=== PATIENT | female | born 2000 | race Hispanic/Latino ===

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

== ENCOUNTER 2019-06-30 11:42 | Emergency (ER) | payer OTHER ==
[2019-06-30] MEDS ORDERED: OCTYL 2-CYANOACRYLATE 1 EACH TP ONE (12:25)
[2019-06-30] MEDS ORDERED: TETANUS/DIPHTHERIA TOXOID [ADULT] 0.5 ML VIAL IM ONE (12:25)
== END 2019-06-30 12:50 | disposition home or self-care (01) ==
LOC: EDH 11:42
DX: S61.012A Laceration without foreign body of left thumb without damage to nail, initial encounter (principal); Z88.1 Allergy status to other antibiotic agents; Z72.0 Tobacco use; W26.0XXA Contact with knife, initial encounter; Y93.G3 Activity, cooking and baking; Y92.89 Other specified places as the place of occurrence of the external cause; Y99.8 Other external cause status
CPT/HCPCS: 12001; 73140; 90471; 90714

== ENCOUNTER 2021-09-19 14:49 | Emergency (ER) | payer SELFPAY ==
[~2021-09-19] VITALS: Ht 152.4 cm; Wt 47.6 kg
[2021-09-19 14:50] VITALS: BP 106/70
[2021-09-19 15:18] LABS: BASOPHILS % (AUTO) 0.6 % (0.0-5.0); EOSINOPHILS % (AUTO) 0.9 % (0.0-8.0); HEMATOCRIT 35.8 % (36-48); LYMPHOCYTES % (AUTO) 17.9 % (21.0-51.0); MEAN CORPUSCULAR HEMOGLOBIN 20.9 pg (27.0-33.0); MEAN CORPUSCULAR HGB CONC 29.6 g/dL (32.0-36.0); MEAN CORPUSCULAR VOLUME 70.5 fL (79-99); MONOCYTES % (AUTO) 5.7 % (3.0-13.0); NEUTROPHILS % (AUTO) 74.7 % (40.0-77.0); PLATELET COUNT (AUTO) 426 K/uL (130-400); RED BLOOD CELL COUNT(AUTO) 5.08 MIL/uL (4.00-5.50); RED CELL DISTRIBUTION WIDTH 15.9 % (11.0-15.5); WHITE BLOOD COUNT (AUTO) 10.1 K/uL (4.8-10.8)
[2021-09-19 15:19] LABS: APPEARANCE,URINE Clear (CLEAR); BILIRUBIN,URINE Negative (NEGATIVE); COLOR,URINE Yellow (YELLOW); GLUCOSE, URINE (UA) Negative (NEGATIVE); KETONES,URINE >=80 mg/dL (NEGATIVE); LEUKOCYTE ESTERASE ,URINE Moderate (NEGATIVE); NITRATE,URINE Negative (NEGATIVE); OCCULT BLOOD,URINE Moderate (NEGATIVE); PROTEIN,URINE POS 2+ mg/dL (NEGATIVE)
[2021-09-19 15:26] LABS: HCG,QUAL RESULT NEGATIVE (NEGATIVE)
[2021-09-19 15:29] LABS: CREATININE 0.5 mg/dL (0.5-1.5); POTASSIUM 4.3 mmol/L (3.5-5.1)
[2021-09-19 15:34] LABS: ALBUMIN 4.8 g/dL (3.5-5.0); BILIRUBIN,TOTAL 0.5 mg/dL (0.2-1.0); TOTAL PROTEIN, SERUM 8.8 g/dL (6.0-8.3)
[2021-09-19 15:40] LABS: BACTERIA,URINE Few /HPF (None Seen); SQUAMOUS EPITHELIAL CELL,UR Few /HPF (0-2)
[2021-09-19 15:41] LABS: WBC,URINE 26-50 /HPF (0-1)
[2021-09-19 15:42] LABS: MUCUS,URINE Rare LPF (None Seen)
[2021-09-19] MEDS ORDERED: LIDOCAINE HCL-MPF 1% 2ML VIAL ONE (17:24)
[2021-09-19] MEDS ORDERED: CEPH500B PO (17:28)
[2021-09-19] MEDS ORDERED: PHEN-847 PO (17:28)
[2021-09-19] MEDS ORDERED: PHENAZOPYRIDINE HCL 200 MG TABLET PO ONE (17:30)
[2021-09-19] MEDS ORDERED: CEFTRIAXONE 1G VIAL IM ONE (17:30)
== END 2021-09-19 17:47 | disposition home or self-care (01) ==
LOC: EDH 14:49
DX: N39.0 Urinary tract infection, site not specified (principal)
CPT/HCPCS: 36415; 80053; 81001; 81025; 82150; 83690; 85025; 87077; 87186; 96372; 99283; J0696; J3490; 87088